=== PATIENT | female | born 1960 | race American Indian/Alaskan Native ===

== ENCOUNTER 2017-03-06 10:06 | Outpatient (CLI) | payer OTHER ==
--- NOTE | 2017-03-06 13:58 | Mammography Report ---
BILATERAL MAMMOGRAM: FINDINGS: The breast tissue is heterogeneously dense, which could obscure detection of small masses (approximately 50%-75% glandular). No mass, distortion, suspicious calcification, or skin change is seen. No significant changes compared to her prior study in February 2014. CAD was utilized. IMPRESSION: Negative mammogram. There is no mammographic evidence of malignancy. RECOMMENDATION: Follow-up per ACS guidelines. BI-RADS CATEGORY: 1 = Negative ACR BI-RADS MAMMOGRAPHIC CODES: 0 = Needs additional imaging evaluation; 1 = Negative; 2 = Benign; 3 = Probably benign; 4 = Suspicious; 5 = Malignant; 6 = Known biopsy-proven malignancy COMMENT: 1. Dense breast tissue, i.e., adenosis, fibrocystic changes, etc., may obscure an underlying neoplasm. 2. Approximately 10% of cancers are not detected with mammography. 3. A negative mammography report should not delay biopsy if a clinically suspicious mass is present. COMMENT: Patient follow-up letters are generated in [employer].
== END 2017-03-06 10:07 | disposition home or self-care (01) ==
LOC: MAMMO 10:06
PROVIDERS: ATTEND Family Medicine
DX: Z12.31 Encounter for screening mammogram for malignant neoplasm of breast (principal)
CPT/HCPCS: 77067; G0202

== ENCOUNTER 2017-03-23 13:43 | Emergency (ER) | payer OTHER ==
[2017-03-23] MEDS ORDERED: NORCO 5/325 PO ONE (19:00)
[2017-03-23] MEDS ORDERED: CATAPRES PO ONE (19:00)
[2017-03-23] MEDS ORDERED: TRIPLE ANTIBIOTIC TP ONE (19:00)
[2017-03-23] MEDS ORDERED: BOOSTRIX IM ONE (19:00)
[2017-03-23 20:10] VITALS: BP 160/100
--- NOTE | 2017-03-23 22:20 | Emergency Department Report ---
Entered by KEVIN GOOD, acting as scribe for JESUS ALBERTO SAN PA. 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 Denies numbness, tingling, foreign body sensation, weakness, fever, chills, nausea and vomiting. Pain is described as 9/ 10 on a severity scale. Patient states she stepped on a nail. Mild relief with Tramadol but worse with weight bearing. NKDA. TDAP not UTD. MD Complaint: Puncture wound to foot -: This evening Location: lower extremity (RT right foot) Radiation: non-radiation Consistency: constant Improves with: none Worsens with: none Associated Symptoms: denies other symptoms Treatments Prior to Arrival: none - Related Data Previous Rx's Medication Instructions Recorded Last Taken Type Acetaminophen/Codeine [Tylenol 1 tab PO Q6H PRN #12 tab 03/23/17 Unknown Rx /Codeine # 3 tab] Cephalexin [Keflex] 500 mg PO Q8HR #15 cap 03/23/17 Unknown Rx Allergies Allergy/AdvReac Type Severity Reaction Status Date / Time No Known Allergies Allergy Unverified 03/03/14 07:05 ED Review of Systems Comment: All other systems reviewed and negative Constitutional: denies: chills, fever Respiratory: no symptoms reported Cardiovascular: denies: chest pain, palpitations, edema, syncope Gastrointestinal: denies: abdominal pain, nausea, vomiting, diarrhea, constipation, hematemesis, melena, hematochezia Musculoskeletal: arthralgia. denies: back pain, joint swelling, myalgia Skin: denies: other (foreign body sensation) Neurological: abnormal gait (Foot). denies: weakness, numbness, paresthesias, confusion ED Past Medical Hx - Past Medical History Previous Medical History?: No - Surgical History Past Surgical History?: Yes Additional Surgical History: something removed from her kidney - Family History Family history: hypertension - Social History Smoking Status: Never Smoker Substance Use Type: Alcohol Other Social History: - Medications Home Medications: Home Medications Medication Instructions Recorded Confirmed Last Taken Type Acetaminophen/Codeine [Tylenol 1 tab PO Q6H PRN #12 tab 03/23/17 Unknown Rx /Codeine # 3 tab] Cephalexin [Keflex] 500 mg PO Q8HR #15 cap 03/23/17 Unknown Rx ED Physical Exam - General Limitations: No Limitations General appearance: alert, in no apparent distress - Head Head exam: Present: atraumatic, normocephalic, normal inspection - Eye Eye exam: Present: normal appearance, PERRL, EOMI Pupils: Present: normal accommodation - ENT ENT exam: Present: normal exam, normal orophraynx - Neck Neck exam: Present: normal inspection, meningismus, full ROM. Absent: tenderness, lymphadenopathy - Respiratory Respiratory exam: Present: normal lung sounds bilaterally. Absent: respiratory distress, wheezes, rales, rhonchi, stridor - Cardiovascular Cardiovascular Exam: Present: regular rate, normal rhythm, normal heart sounds. Absent: systolic murmur, diastolic murmur - GI/Abdominal GI/Abdominal exam: Present: soft, normal bowel sounds. Absent: distended, tenderness, guarding, rebound, rigid - Extremities Exam Extremities exam: Present: normal inspection, full ROM, tenderness, normal capillary refill. Absent: pedal edema, joint swelling, calf tenderness, other ( clubbing, cyanosis or edema, 2+ pulses) - Back Exam Back exam: Present: normal inspection, full ROM. Absent: tenderness, CVA tenderness (R), CVA tenderness (L), muscle spasm, paraspinal tenderness, vertebral tenderness, rash noted - Neurological Exam Neurological exam: Present: alert, oriented X3 - Psychiatric Psychiatric exam: Present: normal affect, normal mood - Skin Skin exam: Present: warm, dry, normal color, erythema, other (right foot erythema, no bleeding, puncture wound to plantar aspect of sole first metatarsal area below big toe, tende to palpate, 2+ pulses ). Absent: vesicles , abrasion, ecchymosis - Expanded Skin Exam Expanded Type of lesion: Present: other (Puncture rt foot) Distribution of rash: RLE (RT foot, plantar below rt great toe) Description of rash: Present: tenderness, erythematous, swelling. Absent: urticarial, crusting, discharge, fluctuant, indurated ED Course Vital Signs 03/23/17 03/23/17 03/23/17 13:49 19:27 19:28 Temperature 98.3 F Pulse Rate 90 79 79 Respiratory 18 18 Rate Blood Pressure 185/114 197/120 Blood Pressure [Left] Blood Pressure 197/120 [Right] O2 Sat by Pulse 100 95 Oximetry 03/23/17 20:09 Temperature Pulse Rate Respiratory Rate Blood Pressure Blood Pressure 160/100 [Left] Blood Pressure [Right] O2 Sat by Pulse Oximetry - Reevaluation(s) Reevaluation #1: 03/23/17 20:11 Patient here with puncture wound to right foot. She was given [place] 5/325 mg 2 tablets by mouth which relieved her pain. Manual blood pressure is 160/100 status post clonidine 0.2 mg. Right foot cleansed with normal saline and Neosporin ointment placed and bandages in place site. No concerns for foreign body at this time. Patient says she got punctured by a nail but the nail was not miss of any parts when she pulled it out of her foot. ED Medical Decision Making - Medical Decision Making ED course: She went nail injury to right foot without any foreign body. She also has high blood pressure and take medication but she said she did not take her blood pressure medication this afternoon. Pressure in triage elevated and also elevated in the emergency room. Given clonidine 0.2 mg by mouth and repeat blood pressure after one hour with blood pressure 160/100. Instructed patient that she needs to take her blood pressure medication when she gets home and she needs to call her primary care doctor and schedule an appointment for follow-up visit. I instructed her while she is waiting for her appointment she needs to keep a log of her blood pressure and take to primary care visit. Patient was asymptomatic with elevated blood pressure. Patient with puncture wound to right foot at so. Mild erythema and tenderness to palpate without any foreign body. Patient was given [place] 5/325 2 tablets in emergency room and booster 0.5 mL to update tetanus. Areacleansed with normal saline and Neosporin ointment placed a side followed by Band-Aid dressing. Condition discharge home to follow up. She voiced understanding discharge diagnosis and treatment plan. Assessment/plan 1. Cellulitis-mild right foot 2. Puncture wound right foot-no foreign body noted with exploration. Patient tetanus vaccine updated 3. Arthralgia right foot 4 elevated blood pressure with history of hypertension-given clonidine and her blood pressure improved but she still with elevated blood pressure without any symptoms Patient given prescription for Tylenol 3 for pain and Keflex for cellulitis. To follow-up with her primary care physician and keep a log of her blood pressure. ED Disposition Clinical Impression: Arthralgia of right foot, Cellulitis of right foot, Blood pressure elevated without history of HTN Puncture wound of right foot Qualifiers: Encounter type: initial encounter Qualified Code(s): S91.331A - Puncture wound without foreign body, right foot, initial encounter Disposition: TO HOME OR SELFCARE Is pt being admited?: No Does the pt Need Aspirin: No Condition: Stable Instructions: Puncture Wound (ED), Cellulitis (ED), Hypertension (ED), Arthralgia (ED) Additional Instructions: Take antibiotic as prescribed Follow-up with your primary care physician in 3 days for follow-up cellulitis right foot and also elevated blood pressure with history of hypertension. Please follow discharge instructions on acute wound care Please keep a log a few blood pressure and take U primary care visit with you for reevaluation. Particular blood pressure medicine When you go home. Important that you write down you medication and take with you at all times. Please return to emergency room if you develop increasing redness, streaking, fever, difficulty moving in rt foot Prescriptions: Acetaminophen/Codeine [Tylenol /Codeine # 3 tab] 1 tab PO Q6H PRN #12 tab PRN Reason: Pain Cephalexin [Keflex] 500 mg PO Q8HR #15 cap Referrals: PRIMARY CARE, [Primary Care Provider] - 2-3 Days Forms: Work/School Release Form(ED) This documentation as recorded by the FLORENTINO lawrence ELIZABETH,accurately reflects the service I personally performed and the decisions made by me,JESUS ALBERTO SAN PA.
== END 2017-03-23 20:46 | disposition home or self-care (01) ==
LOC: ED 13:43
DX: S91.331A Puncture wound without foreign body, right foot, initial encounter (principal); L03.115 Cellulitis of right lower limb; R03.0 Elevated blood-pressure reading, without diagnosis of hypertension; W22.8XXA Striking against or struck by other objects, initial encounter; Y93.89 Activity, other specified; Y92.89 Other specified places as the place of occurrence of the external cause; Y99.8 Other external cause status
CPT/HCPCS: 90471; 90715; 99282; A6250

== ENCOUNTER 2018-03-13 07:38 | Outpatient (CLI) | payer OTHER ==
--- NOTE | 2018-03-13 09:59 | Mammography Report ---
BILATERAL MAMMOGRAM: FINDINGS: The breast tissue is heterogeneously dense, which could obscure detection of small masses (approximately 50%-75% glandular). No mass, distortion, suspicious calcification, or skin change is seen. No significant change compared to prior examination in February 2017. CAD was utilized. IMPRESSION: Negative mammogram. There is no mammographic evidence of malignancy. RECOMMENDATION: Follow-up per ACS guidelines. BI-RADS CATEGORY: 1 = Negative ACR BI-RADS MAMMOGRAPHIC CODES: 0 = Needs additional imaging evaluation; 1 = Negative; 2 = Benign; 3 = Probably benign; 4 = Suspicious; 5 = Malignant; 6 = Known biopsy-proven malignancy COMMENT: 1. Dense breast tissue, i.e., adenosis, fibrocystic changes, etc., may obscure an underlying neoplasm. 2. Approximately 10% of cancers are not detected with mammography. 3. A negative mammography report should not delay biopsy if a clinically suspicious mass is present. COMMENT: Patient follow-up letters are generated in [email or web address].
== END 2018-03-13 07:39 | disposition home or self-care (01) ==
LOC: MAMMO 07:38
PROVIDERS: ATTEND Family Medicine
DX: Z12.31 Encounter for screening mammogram for malignant neoplasm of breast (principal)
CPT/HCPCS: 77067

== ENCOUNTER 2019-07-26 08:15 | Emergency (ER) | payer OTHER ==
[2019-07-26] MEDS ORDERED: SODIUM CHLORIDE 0.9% 1000 ML 1,000 ML IV ONE (08:58)
[2019-07-26] MEDS ORDERED: SODIUM CHLORIDE 0.9% 1000 ML 2,000 ML IV ONE (08:58)
--- NOTE | 2019-07-26 09:00 | Emergency Department Report ---
ED General Adult HPI - General Chief complaint: Weakness Stated complaint: HYPOTENSION Time Seen by Provider: 07/26/19 08:41 Source: patient, RN notes reviewed, old records reviewed Mode of arrival: Ambulatory Limitations: No Limitations - History of Present Illness Initial comments: This is a 59-year-old female. This patient is not known to this provider previously. Her primary care doctor is Dr. Toledo: [phone] Past medical history includes hypertension, takes lisinopril 20 mg, trazodone 180 mg, tenazidine 4 mg, diclofenac 75 mg, Norvasc 5 mg, Singulair 10 mg, HCTZ 12.5 mg, clonidine 0.2 mg, tramadol 50 mg. The patient presents to the ER with one and a half weeks of painless lightheadedness and dizziness. She has not lost consciousness. She thinks that her medications were changed or adjusted in the middle June, but she is not sure. The top of her head, she does not know what medication she takes. I had to call her doctor's office to get a list of her medications. The patient has indicated that she is not overdose on her medicines. She denies headache, neck pain, chest pain, abdominal pain, shortness of breath. She denies bright red blood per rectum, urinary symptoms, cough, hematemesis. She denies DVT and pulmonary embolism risk factors. Her lightheadedness is constant, and reportedly does not have exacerbating or relieving factors. There is no endorsement of chest pain. She came in today "to figure out what is going on with me." -: Gradual, days(s) Consistency: other Improves with: other Worsens with: other Associated Symptoms: denies other symptoms - Related Data Home Medications Medication Instructions Recorded Confirmed Last Taken Diclofenac Sodium 75 mg PO 07/26/19 Unknown Loratadine 10 mg PO QDAY 07/26/19 07/26/19 Unknown Rosuvastatin Calcium 10 mg PO QDAY 07/26/19 07/26/19 Unknown valACYclovir [Valtrex] 500 mg PO QDAY 07/26/19 07/26/19 Unknown Previous Rx's Medication Instructions Recorded Last Taken Type cephALEXin [Keflex] 500 mg PO Q8HR #15 cap 03/23/17 Unknown Rx Nitrofurantoin Christian/M-Cryst 100 mg PO Q12HR #14 capsule 07/26/19 Unknown Rx [Macrobid CAP] Allergies Allergy/AdvReac Type Severity Reaction Status Date / Time No Known Allergies Allergy Unverified 03/03/14 07:05 ED Review of Systems ROS: Stated complaint: HYPOTENSION Other details as noted in HPI Comment: All other systems reviewed and negative Constitutional: denies: fever Cardiovascular: other (lightheadedness). denies: chest pain, syncope Gastrointestinal: denies: abdominal pain, hematemesis, melena, hematochezia Genitourinary: denies: dysuria Neurological: denies: weakness Hematological/Lymphatic: denies: easy bleeding ED Past Medical Hx - Past Medical History Previous Medical History?: Yes Hx Hypertension: Yes - Surgical History Past Surgical History?: Yes Additional Surgical History: Kidney surgery - Social History Smoking Status: Never Smoker Substance Use Type: None - Medications Home Medications: Home Medications Medication Instructions Recorded Confirmed Last Taken Type cephALEXin [Keflex] 500 mg PO Q8HR #15 cap 03/23/17 Unknown Rx Diclofenac Sodium 75 mg PO 07/26/19 Unknown History Loratadine 10 mg PO QDAY 07/26/19 07/26/19 Unknown History Nitrofurantoin Christian/M-Cryst 100 mg PO Q12HR #14 capsule 07/26/19 Unknown Rx [Macrobid CAP] Rosuvastatin Calcium 10 mg PO QDAY 07/26/19 07/26/19 Unknown History valACYclovir [Valtrex] 500 mg PO QDAY 07/26/19 07/26/19 Unknown History ED Physical Exam - General Limitations: No Limitations General appearance: alert, in no apparent distress - Head Head exam: Present: atraumatic, normocephalic - Eye Eye exam: Present: normal appearance, PERRL, EOMI, other (visual acuity intact to finger counting, color perception, reading at a close distance). Absent: nystagmus - ENT ENT exam: Present: normal exam, normal orophraynx, mucous membranes moist, normal external ear exam - Neck Neck exam: Present: normal inspection, full ROM. Absent: tenderness, meningismus - Respiratory Respiratory exam: Present: normal lung sounds bilaterally. Absent: respiratory distress - Cardiovascular Cardiovascular Exam: Present: regular rate, normal rhythm, normal heart sounds. Absent: bradycardia, tachycardia, irregular rhythm, systolic murmur, diastolic murmur, rubs, gallop - GI/Abdominal GI/Abdominal exam: Present: soft, normal bowel sounds. Absent: distended, tenderness, guarding, rebound, rigid, pulsatile mass - Extremities Exam Extremities exam: Present: normal inspection, full ROM, other (2+ pulses noted in the bilateral upper and lower extremities. The pelvis is stable. There is no long bony tenderness. The muscular compartments are soft. There is no redness, pus, streaking or erythema.). Absent: pedal edema, calf tenderness - Back Exam Back exam: Present: normal inspection. Absent: tenderness, CVA tenderness (R), CVA tenderness (L), paraspinal tenderness, vertebral tenderness - Neurological Exam Neurological exam: Present: alert, oriented X3, normal gait, other (there is no facial droop. The tongue is midline. Extraocular movements are intact bilaterally. Speaking in full sentences. Hearing is grossly intact. 5 out of 5 strength bilateral upper and lower extremities. Sensation is intact to light touch bilateral upper and lower extremities.). Absent: motor sensory deficit - Psychiatric Psychiatric exam: Present: normal affect, normal mood - Skin Skin exam: Present: warm, dry, intact, normal color. Absent: rash ED Course Vital Signs 07/26/19 07/26/19 07/26/19 08:18 08:21 09:52 Temperature 97.7 F Pulse Rate 69 71 Respiratory 16 15 Rate Blood Pressure 89/57 Blood Pressure 82/40 [Left] O2 Sat by Pulse 99 Oximetry 07/26/19 07/26/19 07/26/19 09:56 10:05 10:11 Temperature Pulse Rate 72 69 71 Respiratory 14 12 15 Rate Blood Pressure Blood Pressure [Left] O2 Sat by Pulse 100 96 Oximetry 07/26/19 07/26/19 07/26/19 10:19 10:25 10:41 Temperature Pulse Rate 70 70 Respiratory 15 12 13 Rate Blood Pressure 106/76 Blood Pressure [Left] O2 Sat by Pulse 98 Oximetry 07/26/19 07/26/19 07/26/19 10:45 11:00 11:21 Temperature Pulse Rate 69 71 74 Respiratory 12 10 L 11 L Rate Blood Pressure 117/77 119/80 112/74 Blood Pressure [Left] O2 Sat by Pulse 98 99 99 Oximetry - Reevaluation(s) Reevaluation #1: 07/26/19 09:37 Differential diagnosis, including but not limited to: Medication side effect, dehydration, vagal events Urinary tract infection, pneumonia Assessment and plan: 59-year-old female on multiple antihypertensive medications, now presenting with lightheadedness and hypotension. She is otherwise afebrile with reassuring vital signs. She is not tachycardic, tachypneic or hypoxic, she has no DVT or pulmonary embolism risk factors, and she is low risk by well's criteria. She had a similar presentation at this hospital a few months ago. I suspect dehydration in combination with medication interaction. Patient placed on laboratory monitor, EKG unremarkable, x-ray of the chest unremarkable, IV fluids ordered, screening laboratory studies and urinalysis ordered Reevaluation #2: 07/26/19 13:03 Patient resting comfortably and in no acute distress. Blood pressure much improved on multiple repeat evaluations. Numerous requests have been made for urine sample. Patient states she is going to urinate now. Medication list is reviewed and appreciated. Reevaluation #3: 07/26/19 14:09 ua appreciated will d/c with macrobid ED Medical Decision Making - Lab Data Result diagrams: 07/26/19 09:24 07/26/19 09:24 Vital Signs 07/26/19 07/26/19 08:18 08:21 Temperature 97.7 F Pulse Rate 69 Respiratory 16 Rate Blood Pressure 89/57 Blood Pressure 82/40 [Left] O2 Sat by Pulse 99 Oximetry Vital Signs 07/26/19 07/26/19 07/26/19 08:18 08:21 09:52 Temperature 97.7 F Pulse Rate 69 71 Respiratory 16 15 Rate Blood Pressure 89/57 Blood Pressure 82/40 [Left] O2 Sat by Pulse 99 Oximetry 07/26/19 07/26/19 07/26/19 09:56 10:05 10:11 Temperature Pulse Rate 72 69 71 Respiratory 14 12 15 Rate Blood Pressure Blood Pressure [Left] O2 Sat by Pulse 100 96 Oximetry 07/26/19 07/26/19 07/26/19 10:25 10:41 10:45 Temperature Pulse Rate 70 70 69 Respiratory 12 13 12 Rate Blood Pressure 106/76 117/77 Blood Pressure [Left] O2 Sat by Pulse 98 98 Oximetry Lab Results 07/26/19 07/26/19 07/26/19 Range/Units 09:24 09:24 09:24 WBC 5.6 (4.5-11.0) K/mm3 RBC 4.22 (3.65-5.03) M/mm3 Hgb 12.7 (10.1-14.3) gm/dl Hct 38.6 (30.3-42.9) % MCV 91 (79-97) fl MCH 30 (28-32) pg MCHC 33 (30-34) % RDW 15.2 (13.2-15.2) % Plt Count 190 (140-440) K/mm3 PT (12.2-14.9) Sec. INR (0.87-1.13) Sodium 137 (137-145) mmol/L Potassium 4.9 (3.6-5.0) mmol/L Chloride 98.0 (98-107) mmol/L Carbon Dioxide 23 (22-30) mmol/L Anion Gap 21 mmol/L BUN 15 (7-17) mg/dL Creatinine 1.3 H (0.7-1.2) mg/dL Estimated GFR 51 ml/min BUN/Creatinine Ratio 12 % Glucose 102 H (65-100) mg/dL Calcium 9.8 (8.4-10.2) mg/dL Magnesium 2.30 (1.7-2.3) mg/dL Total Bilirubin 0.30 (0.1-1.2) mg/dL AST 39 (5-40) units/L ALT 28 (7-56) units/L Alkaline Phosphatase 229 H (35-129) units/L Total Creatine Kinase 121 (30-135) units/L Total Protein 8.6 H (6.3-8.2) g/dL Albumin 4.2 (3.9-5) g/dL Albumin/Globulin Ratio 1.0 % TSH 5.080 H (0.270-4.200) mlU/mL 07/26/19 Range/Units 09:24 WBC (4.5-11.0) K/mm3 RBC (3.65-5.03) M/mm3 Hgb (10.1-14.3) gm/dl Hct (30.3-42.9) % MCV (79-97) fl MCH (28-32) pg MCHC (30-34) % RDW (13.2-15.2) % Plt Count (140-440) K/mm3 PT 14.1 (12.2-14.9) Sec. INR 1.08 (0.87-1.13) Sodium (137-145) mmol/L Potassium (3.6-5.0) mmol/L Chloride (98-107) mmol/L Carbon Dioxide (22-30) mmol/L Anion Gap mmol/L BUN (7-17) mg/dL Creatinine (0.7-1.2) mg/dL Estimated GFR ml/min BUN/Creatinine Ratio % Glucose (65-100) mg/dL Calcium (8.4-10.2) mg/dL Magnesium (1.7-2.3) mg/dL Total Bilirubin (0.1-1.2) mg/dL AST (5-40) units/L ALT (7-56) units/L Alkaline Phosphatase (35-129) units/L Total Creatine Kinase (30-135) units/L Total Protein (6.3-8.2) g/dL Albumin (3.9-5) g/dL Albumin/Globulin Ratio % TSH (0.270-4.200) mlU/mL - EKG Data -: EKG Interpreted by Me EKG shows normal: sinus rhythm, axis, intervals, QRS complexes, ST-T waves Rate: normal - EKG Data When compared to previous EKG there are: no significant change - Radiology Data Radiology results: pending, report reviewed X-ray the chest is negative for acute disease. Critical care attestation.: If time is entered above; I have spent that time in minutes in the direct care of this critically ill patient, excluding procedure time. ED Disposition Clinical Impression: Orthostasis Disposition: DC-01 TO HOME OR SELFCARE Is pt being admited?: No Does the pt Need Aspirin: No Condition: Stable Additional Instructions: Please drink 4-6 cups of water per day. I recommend that patient hold all of her blood pressure medications, and she should not take her lisinopril, HCTZ, clonidine. I also recommend that patient currently withhold sedating medications, including tramadol and zanaflex/Tizanidine Patient may continue the remainder of her medications. Recommend that patient follow up with her primary care doctor in 3-5 days for repeat checkup and evaluation. Laboratory tests today demonstrated nonspecific elevation of TSH, thyroid stimulating hormone, not immediately dangerous or life-threatening, but this should be followed up by her primary care doctor. Please return to the emergency room right away with projectile vomiting, change in mental status, confusion, inability to tolerate liquid feeds, new, worsened or different symptoms not present on initial emergency room evaluation. Prescriptions: Nitrofurantoin Christian/M-Cryst [Macrobid CAP] 100 mg PO Q12HR #14 capsule Referrals: rabia toledo [Other] - 3-5 Days
--- NOTE | 2019-07-26 09:22 | XRay Report ---
CHEST 1 VIEW INDICATION / CLINICAL INFORMATION: dizzy weak. COMPARISON: None available. FINDINGS: SUPPORT DEVICES: None. HEART / MEDIASTINUM: Heart size is normal. LUNGS / PLEURA: No significant pulmonary or pleural abnormality. No pneumothorax. ADDITIONAL FINDINGS: No significant additional findings. IMPRESSION: 1. No acute findings. Signer Name: Abe Kate MD Signed: 07/26/2019 9:18 AM Workstation Name: [id number]
[2019-07-26 09:47] LABS: Hematocrit 38.6 % (30.3-42.9); Hemoglobin 12.7 gm/dl (10.1-14.3); Mean Corpuscular HGB Conc 33 % (30-34); Mean Corpuscular Volume 91 fl (79-97); Platelet Count 190 K/mm3 (140-440); Red Blood Count 4.22 M/mm3 (3.65-5.03); Red Cell Distribution Width 15.2 % (13.2-15.2)
[2019-07-26 09:59] LABS: INR 1.08 (0.87-1.13)
[2019-07-26 10:14] LABS: Albumin 4.2 g/dL (3.9-5); Calcium 9.8 mg/dL (8.4-10.2)
[2019-07-26 14:05] LABS: Bacteria,Urine 1+ /HPF (Negative); Bilirubin,Urine NEG (Negative); Blood,Urine NEG (Negative); Color,Urine Yellow (Yellow); Mucus,Urine FEW /HPF; Protein,Urine <15 mg/dL mg/dL (Negative); Urobilinogen,Urine < 2.0 mg/dL (<2.0)
[2019-07-26 15:00] VITALS: BP 125/76
== END 2019-07-26 15:02 | disposition home or self-care (01) ==
LOC: ED 08:15
DX: I95.1 Orthostatic hypotension (principal); I10 Essential (primary) hypertension
CPT/HCPCS: 36415; 71045; 80053; 81001; 82550; 83735; 84439; 84443; 85027; 85610; 93005; 93010; 96360; 99284; J7030

== ENCOUNTER 2019-08-27 14:10 | Outpatient (CLI) | payer OTHER ==
--- NOTE | 2019-08-30 11:21 | Mammography Report ---
DIGITAL SCREENING MAMMOGRAM WITH CAD, 08/27/2019 INDICATION: Routine screening mammography. TECHNIQUE: Digital bilateral 2D mammography was obtained in the craniocaudal and mediolateral obliq ue projections. This examination was interpreted with the benefit of Computer-Aided Detection analysi s. COMPARISON: 03/13/2018 FINDINGS: Breast Density: The breasts are heterogeneously dense, which may obscure small masses. Right asymmetry and architectural distortion on the MLO view requires additional imaging. No suspicio us calcifications of the right breast. There is no evidence of dominant mass, suspicious calcificatio ns or architectural distortion in the left breast. IMPRESSION: Right asymmetry and architectural distortion requiring additional imaging. Recommend reca ll for right rolled CC, lateralmedial and spot magnification MLO views and right breast ultrasound if needed. Follow up recommendation: Special View: Mag Category 0: Incomplete. Needs additional imaging evaluation and/or prior mammograms for comparison. A "normal" or negative report should not discourage follow up or biopsy of a clinically significant f inding. A written summary of these findings will be mailed to the patient. The patient will be entered into a mammography reporting system which will generate a reminder letter for the patient's next appointmen t at the appropriate interval. The [employer] recommends yearly mammograms starting at age 40 and continuing as l janet as a woman is in good health. Breast MRI is recommended for women with an approximate 20-25% or greater lifetime risk of breast cancer, including women with a strong family history of breast or ova isabela cancer or who have been treated for Hodgkin's disease. Signer Name: Philippe Simon MD Signed: 08/30/2019 11:17 AM Workstation Name: [id number]
== END 2019-08-27 14:11 | disposition home or self-care (01) ==
LOC: MAMMO 14:10
PROVIDERS: ATTEND Family Medicine
DX: Z12.31 Encounter for screening mammogram for malignant neoplasm of breast (principal)
CPT/HCPCS: 77067